=== PATIENT | female | born 1950 | race Caucasian/White ===

== ENCOUNTER → 2018-05-17 | Outpatient (CLI) | payer MEDICARE ==
[~2018-05-17] MED LIST: CALC-35 PO; GLUC1CAP18 PO; HYDR-3240 PO; LOSA1TAB25 PO; METH750T2 PO
[2018-05-17 10:07] LABS: BASOPHILS # (AUTO) 0.02 x10^3/uL (0-0.1); BASOPHILS % (AUTO) 0 % (0-1); EOSINOPHILS # (AUTO) 0.07 x10^3/uL (0-0.4); EOSINOPHILS % (AUTO) 1 % (1-7); LYMPHOCYTES # (AUTO) 1.19 x10^3/uL (1-3.4); LYMPHOCYTES % (AUTO) 15 % (22-44); MD NO; MEAN CORPUSCULAR HEMOGLOBIN 33.1 pg (27.0-34.8); MEAN CORPUSCULAR VOLUME 97.5 fL (80-100); MEAN PLATELET VOLUME 9.2 fL (7.4-10.4); MONOCYTES # (AUTO) 0.53 x10^3/uL (0.2-0.8); MONOCYTES % (AUTO) 6 % (2-9); NEUTROPHILS % (AUTO) 78 % (42-75); PLATELET COUNT 246 x10^3/uL (130-400); RED CELL DISTRIBUTION WIDTH 12.7 % (9.6-15.2)
[2018-05-17 10:19] LABS: ALANINE AMINOTRANSFERASE 23 U/L (12-78); ANION GAP 6 mmol/L (5-15); CALCIUM 8.7 mg/dL (8.5-10.1); CHLORIDE 106 mmol/L (98-107); PROTHROMBIN TIME 10.6 Seconds (9.6-11.5)
[2018-05-17 10:22] LABS: ALKALINE PHOSPHATASE 81 U/L (45-117); BILIRUBIN,TOTAL 0.9 mg/dL (0.2-1.0); CREATININE 0.98 mg/dL (0.55-1.02); TOTAL PROTEIN 7.1 g/dL (6.4-8.2)
== END | disposition home or self-care (01) ==
LOC: STAR 08:49
PROVIDERS: ATTEND Surgery
DX: Z01.818 Encounter for other preprocedural examination (principal); Z72.89 Other problems related to lifestyle; F17.200 Nicotine dependence, unspecified, uncomplicated
CPT/HCPCS: 36415; 80053; 85025; 85610; 85730; 93005

== ENCOUNTER 2018-05-27 08:54 | Inpatient (IN) | payer MEDICARE ==
[~2018-05-27] VITALS: Ht 162.6 cm; Wt 64.3 kg
[2018-05-27] MEDS ORDERED: LACTATED RINGERS 1,000 ML IV SCH (12:00)
[2018-05-27 12:20] VITALS: BP 164/81
[2018-05-27] MEDS ORDERED: OxyconTIN ER 10 MG TAB.ER PO ONE (12:30)
[2018-05-27] MEDS ORDERED: GABAPENTIN 300 MG CAPSULE PO ONE (12:30)
[2018-05-27] MEDS ORDERED: ACETAMINOPHEN 500 MG TABLET PO ONE (12:30)
[2018-05-27] MEDS ORDERED: ONDANSETRON ODT 8 MG PO ONE (12:30)
[2018-05-27] MEDS ORDERED: MIDAZOLAM 1 MG/ML, 2ML ONE (12:31)
[2018-05-27] MEDS ORDERED: FENTANYL PF 250 MCG/5ML ONE (12:31)
[2018-05-27] MEDS ORDERED: BUPIVACAINE/PF-EPI 0.5% 1:200K ONE (12:34)
[2018-05-27] MEDS ORDERED: PROMETHAZINE 25 MG/ML, 1ML IV PRN (14:30)
[2018-05-27] MEDS ORDERED: ONDANSETRON 2MG/ML, 2ML IV PRN (14:30)
[2018-05-27] MEDS ORDERED: MEPERIDINE/PF 25MG/0.5ML IVPush PRN (14:30)
[2018-05-27] MEDS ORDERED: ONDANSETRON ODT 8 MG PO PRN (14:30)
[2018-05-27] MEDS ORDERED: HYDROmorphone 2 MG/ML, 1ML IVPush PRN (14:30)
[2018-05-27] MEDS ORDERED: MORPHINE SULFATE 4 MG/ML, 1ML IVPush PRN (14:30)
[2018-05-27] MEDS ORDERED: hydrALAzine 20 MG/ML, 1ML IV PRN (14:30)
[2018-05-27] MEDS ORDERED: DIAZEPAM 5 MG/ML, 2ML IVPush PRN (14:30)
[2018-05-27] MEDS ORDERED: EPHEDRINE 50 MG/ML, 1ML IVPush PRN (14:30)
[2018-05-27] MEDS ORDERED: FENTANYL PF 100 MCG/2ML IV PRN (14:30)
[2018-05-27] MEDS ORDERED: LABETALOL 5MG/ML, 20ML IV PRN (14:30)
[2018-05-27] MEDS ORDERED: MIDAZOLAM 1 MG/ML, 2ML IV PRN (14:30)
[2018-05-27] MEDS ORDERED: ALBUTEROL SULFATE 2.5 MG/3 ML NPPB PRN (14:30)
[2018-05-27] MEDS ORDERED: OXYcodone 5 MG/5 ML ORAL.SOL UDC PO PRN (14:30)
[2018-05-27] MEDS ORDERED: PROMETHAZINE 12.5 MG SUPP PR PRN (14:30)
[2018-05-27] MEDS ORDERED: HALOPERIDOL 5 MG/ML IV PRN (14:30)
[2018-05-27] MEDS ORDERED: HYDROmorphone 2 MG/ML, 1ML ONE (15:15)
[2018-05-27] MEDS ORDERED: FENTANYL PF 100 MCG/2ML ONE (15:15)
[2018-05-27] MEDS ORDERED: ROCURONIUM 10MG/ML,5ML ONE (16:06)
[2018-05-27] MEDS ORDERED: DEXAMETHASONE 4 MG/ML, 1ML ONE (16:06)
[2018-05-27] MEDS ORDERED: ONDANSETRON 2MG/ML, 2ML ONE (16:06)
[2018-05-27] MEDS ORDERED: PROPOFOL 10 MG/ML, 20ML ONE (16:06)
[2018-05-27] MEDS ORDERED: PHENYLEPHRINE 10 MG/ML ONE (16:06)
[2018-05-27] MEDS ORDERED: CEFAZOLIN 1,000 MG ONE (16:06)
[2018-05-27] MEDS: POTASSIUM CHLORIDE 20 MEQ in D5%-0.45% NACL 1,000 ML IV SCH (17:23)
[2018-05-27] MEDS ORDERED: METHOCARBAMOL 750 MG TABLET PO PRN (17:30)
[2018-05-27] MEDS ORDERED: HYDROcodone/APAP 5/325 TABLET PO PRN (17:30)
[2018-05-27] MEDS ORDERED: ACETAMINOPHEN 500 MG TABLET PO SCH (17:30)
[2018-05-27] MEDS ORDERED: morphine SULFATE 10 MG/ML, 1ML IV PRN (17:30)
[2018-05-27 19:31] VITALS: BP 123/70
[2018-05-27] MEDS: CEFAZOLIN PMX 2GM/50ML 50 ML IVPB SCH (21:46)
[2018-05-27] MEDS: ACETAMINOPHEN 500 MG TABLET PO SCH (21:46)
[2018-05-27] MEDS: ONDANSETRON 2MG/ML, 2ML IV PRN (21:46)
[2018-05-28 00:14] VITALS: BP 129/70
[2018-05-28] MEDS: ACETAMINOPHEN 500 MG TABLET PO SCH ×4 (04:34→23:46)
[2018-05-28] MEDS: CEFAZOLIN PMX 2GM/50ML 50 ML IVPB SCH (05:47)
[2018-05-28] MEDS: POTASSIUM CHLORIDE 20 MEQ in D5%-0.45% NACL 1,000 ML IV SCH ×2 (06:34→20:29)
[2018-05-28] MEDS: HEPARIN 5,000 UNITS/ML, 1ML SQ SCH ×3 (08:30→23:46)
[2018-05-28] MEDS: IBUPROFEN 600 MG TABLET PO SCH ×3 (08:30→18:06)
[2018-05-28] MEDS: CALCIUM/VITAMIN D3 250-125 TABLET PO SCH (08:30)
[2018-05-28 09:45] VITALS: BP 113/58
[2018-05-28 17:54] VITALS: BP 124/74
[2018-05-28 19:32] VITALS: BP 126/78
[2018-05-28] MEDS: ONDANSETRON 2MG/ML, 2ML IV PRN (20:35)
[2018-05-29 00:33] VITALS: BP 129/73
[2018-05-29] MEDS: ACETAMINOPHEN 500 MG TABLET PO SCH ×2 (05:14→12:04)
[2018-05-29] MEDS: CALCIUM/VITAMIN D3 250-125 TABLET PO SCH (08:11)
[2018-05-29] MEDS: IBUPROFEN 600 MG TABLET PO SCH ×2 (08:11→12:04)
[2018-05-29] MEDS: HEPARIN 5,000 UNITS/ML, 1ML SQ SCH (08:11)
[2018-05-29 09:07] VITALS: BP 154/80
[2018-05-29] MEDS: POTASSIUM CHLORIDE 20 MEQ in D5%-0.45% NACL 1,000 ML IV SCH (10:04)
[2018-05-29] MEDS ORDERED: HYDR-3240 PO (10:32)
[2018-05-29] MEDS ORDERED: IBUP-1222 PO (10:33)
[2018-05-29 11:54] VITALS: BP 171/78
[2018-05-29 12:10] VITALS: BP 148/85
== END 2018-05-29 12:40 | disposition home or self-care (01) | DRG 165 ==
LOC: ORIP 11:23 → EDSTATUS 13:00 → 4NOR 16:29
PROVIDERS: ADMIT Surgery; ATTEND Surgery
PROC: 0BBG4ZZ Excision of Left Upper Lung Lobe, Percutaneous Endoscopic Approach (ICD-10-PCS; 2018-05-27)
PROC: 03HY32Z Insertion of Monitoring Device into Upper Artery, Percutaneous Approach (ICD-10-PCS; 2018-05-27)
PROC: 0BJ08ZZ Inspection of Tracheobronchial Tree, Via Natural or Artificial Opening Endoscopic (ICD-10-PCS; 2018-05-27)
PROC: 07B74ZZ Excision of Thorax Lymphatic, Percutaneous Endoscopic Approach (ICD-10-PCS; principal; 2018-05-27 13:30)
DX: C34.12 Malignant neoplasm of upper lobe, left bronchus or lung (principal); I10 Essential (primary) hypertension; E78.5 Hyperlipidemia, unspecified; F17.210 Nicotine dependence, cigarettes, uncomplicated; J45.909 Unspecified asthma, uncomplicated; Z82.49 Family history of ischemic heart disease and other diseases of the circulatory system
CPT/HCPCS: 36415; 71045; 86850; 86900; 86923; 88305; 88309; 88331; 88332; C1729; G0378; J0690; J1100; J1170; J1644; J2250; J2405; J2704; J3010; J3480; Q0162; C1760; J2370; J7120